=== PATIENT | female | born 1980 | race Caucasian/White ===

== ENCOUNTER 2019-07-06 16:19 | Emergency (ER) | payer OTHER ==
[~2019-07-06] VITALS: Ht 165.1 cm; Wt 59.9 kg
[2019-07-06 17:18] VITALS: BP 149/88
== END 2019-07-06 17:38 | disposition left against medical advice (07) ==
LOC: ER 16:19
DX: Z77.21 Contact with and (suspected) exposure to potentially hazardous body fluids (principal); Z53.21 Procedure and treatment not carried out due to patient leaving prior to being seen by health care provider